=== PATIENT | male | born 1940 | race Caucasian/White ===

== ENCOUNTER 2021-03-04 19:23 | Emergency (ER) | payer MEDICARE ==
[~2021-03-04] VITALS: Ht 182.9 cm; Wt 95.2 kg
[2021-03-05 00:15] VITALS: BP 160/93
== END 2021-03-05 00:30 | disposition home or self-care (01) ==
LOC: M ED 19:23
DX: I10 Essential (primary) hypertension (principal); Z20.822 Contact with and (suspected) exposure to COVID-19; Z87.891 Personal history of nicotine dependence